=== PATIENT | male | born 1940 | race Caucasian/White ===

== ENCOUNTER → 2021-02-01 | Outpatient (CLI) | payer MEDICARE, BC ==
--- NOTE | 2021-02-01 12:00 | US ---
EXAMINATION TYPE: US extremity nonvasc mass RT DATE OF EXAM: 02/01/2021 COMPARISON: NONE CLINICAL HISTORY: R22.41 Right lower extremity pain and swelling. Right anterior mid thigh seen. Juliane zhu states he is diabetic and does shots, noticed it . Area of concern scanned. Possible focal swelling seen. No mass or fluid collection visualized. IMPRESSION: No mass is identified.
== END | disposition home or self-care (01) ==
LOC: RADUSWWP 11:13
PROVIDERS: ATTEND Internal Medicine
DX: R22.41 Localized swelling, mass and lump, right lower limb (principal); M79.604 Pain in right leg; E11.9 Type 2 diabetes mellitus without complications

== ENCOUNTER 2021-02-05 08:54 | Emergency (ER) | payer MEDICARE, BC ==
[2021-02-05 09:00] VITALS: RESP 18
--- NOTE | 2021-02-05 09:30 | XR ---
EXAMINATION TYPE: XR KUB DATE OF EXAM: 02/05/2021 Comparison: None Clinical History: 80-year-old male with constipation and pain. Findings: The rectum is markedly distended up to 8.6 cm wide with stool. Moderate stool in the sigmoid colon. T he transverse colon appears air distended up to 6.4 cm. Small air-fluid levels in the midabdomen are nonspecific and may be transient. Dextro convex scoliosis lumbar spine. No evidence for free intraper itoneal air. Impression: 1. Correlate for fecal impaction and the need for disimpaction. The rectum is distended up to 8.6 cm wide with stool. There is moderate stool in the sigmoid colon. 2. This may be contributing to a relative distal colonic obstruction as the transverse colon is diste nded up to 6.4 cm. Some small air-fluid levels in the midabdomen are nonspecific.
--- NOTE | 2021-02-05 09:32 | ED ---
Abdominal Pain HPI - General Chief Complaint: Abdominal Pain Stated Complaint: constipation Time Seen by Provider: 02/05/21 09:07 Source: patient, RN notes reviewed Mode of arrival: ambulatory Limitations: no limitations - History of Present Illness Initial Comments: Patient is an 80-year-old male that presents to emergency by complaining of constipation. He notes that his last bowel movement was approximately 1 week ago. He notes that his recently had a stroke, he has been cooking for himself and has not been eating or drinking as much as he should. He notes that he is tried taking MiraLAX at home with no relief. He notes that he can emergency room to get a enema. He was otherwise well-appearing in good spirits. He denied chest pain first breath headache nausea vomiting diarrhea fever fatigue chills. - Related Data Previous Rx's Medication Instructions Recorded Docusate [Colace] 100 mg PO BID 30 Days #60 capsule 02/05/21 Allergies Allergy/AdvReac Type Severity Reaction Status Date / Time No Known Allergies Allergy Verified 02/05/21 09:00 Review of Systems ROS Statement: Those systems with pertinent positive or pertinent negative responses have been documented in the HPI. ROS Other: All systems not noted in ROS Statement are negative. Past Medical History Past Medical History: Cancer, Diabetes Mellitus, Hyperlipidemia, Hypertension History of Any Multi-Drug Resistant Organisms: None Reported Additional Past Surgical History / Comment(s): open heart for valve. colon surgery for CA Past Psychological History: No Psychological Hx Reported Smoking Status: Never smoker Past Alcohol Use History: None Reported Past Drug Use History: None Reported General Exam Limitations: no limitations General appearance: alert, in no apparent distress Head exam: Present: atraumatic, normocephalic, normal inspection Eye exam: Present: normal appearance, PERRL, EOMI. Absent: scleral icterus, conjunctival injection, periorbital swelling ENT exam: Present: normal exam, mucous membranes moist Neck exam: Present: normal inspection Respiratory exam: Present: normal lung sounds bilaterally. Absent: respiratory distress, wheezes, rales, rhonchi, stridor Cardiovascular Exam: Present: regular rate, normal rhythm, normal heart sounds. Absent: systolic murmur, diastolic murmur, rubs, gallop, clicks GI/Abdominal exam: Present: soft, normal bowel sounds. Absent: distended, tenderness, guarding, rebound, rigid Extremities exam: Present: normal inspection, full ROM, normal capillary refill. Absent: tenderness, pedal edema, joint swelling, calf tenderness Neurological exam: Present: alert, oriented X3 Psychiatric exam: Present: normal affect, normal mood Skin exam: Present: warm, dry, intact, normal color. Absent: rash Course Vital Signs 02/05/21 08:56 Temperature 97.1 F L Pulse Rate 90 Respiratory 18 Rate Blood Pressure 136/83 O2 Sat by Pulse 96 Oximetry Medical Decision Making - Medical Decision Making 80-year-old male complaining of constipation no bowel movements times one week. KUB, enema ordered. KUB shows large amounts of stool in the rectum and sigmoid colon. Enema administered, patient had a large bowel movement feels much better. Stool softeners will be sent to pharmacy. Case discussed with Dr. Fiore, patient discharge home. - Radiology Data Radiology results: report reviewed, image reviewed KUB: Correlate for fecal impaction and the need for disimpaction the rectum is distended up to 8.6 cm wide with stool. There is moderate stool in the sigmoid colon. This may be contributing to her relative distal colonic obstruction at the transverse colon is distended up to 6.4 cm some small air-fluid levels in the midabdomen nonspecific. Disposition Clinical Impression: Constipation Disposition: HOME SELF-CARE Condition: Stable Instructions (If sedation given, give patient instructions): Constipation (ED) Additional Instructions: Please return to the Emergency Department if symptoms worsen or any other héctor rns. Follow-up with primary care 1-2 days. Increase oral fluids. Take stool softeners as prescribed. Increase dietary fiber. Is patient prescribed a controlled substance at d/c from ED?: No Referrals: Anh Valiente MD [Primary Care Provider] - 1-2 days Time of Disposition: 10:47
[2021-02-05 10:59] VITALS: BP 132/78; PULSE 80; TEMP 97.8
== END 2021-02-05 10:58 | disposition home or self-care (01) ==
LOC: EC 08:54
DX: K59.00 Constipation, unspecified (principal); I10 Essential (primary) hypertension; E11.9 Type 2 diabetes mellitus without complications; E78.5 Hyperlipidemia, unspecified; Z85.038 Personal history of other malignant neoplasm of large intestine
CPT/HCPCS: 74018; 99283